=== PATIENT | female | born 1950 | race Two or more races ===

== ENCOUNTER 2019-02-17 10:48 | Emergency (ER) | payer OTHER ==
[~2019-02-17] VITALS: Ht 165.1 cm; Wt 98.9 kg
[~2019-02-17 10:48] MED LIST: CELEBREX200MG; CLEOCIN HCL300 MG
== END 2019-02-17 16:30 | disposition home or self-care (01) ==
LOC: ER 10:48
DX: B34.9 Viral infection, unspecified (principal); N20.0 Calculus of kidney; K57.30 Diverticulosis of large intestine without perforation or abscess without bleeding; R10.11 Right upper quadrant pain

== ENCOUNTER 2021-08-28 09:30 | Emergency (ER) | payer OTHER ==
[~2021-08-28] VITALS: Ht 167.6 cm; Wt 90.7 kg
== END 2021-08-28 16:24 | disposition home or self-care (01) ==
LOC: ER 09:30
DX: K57.90 Diverticulosis of intestine, part unspecified, without perforation or abscess without bleeding (principal); R10.32 Left lower quadrant pain; N20.0 Calculus of kidney; K76.0 Fatty (change of) liver, not elsewhere classified

== ENCOUNTER 2022-05-03 07:42 | Emergency (ER) | payer OTHER ==
[~2022-05-03] VITALS: Ht 167.6 cm; Wt 103.9 kg
== END 2022-05-03 14:52 | disposition home or self-care (01) ==
LOC: ER 07:42
DX: R51.9 Headache, unspecified (principal); I10 Essential (primary) hypertension; E11.9 Type 2 diabetes mellitus without complications

== ENCOUNTER 2023-12-02 23:56 | Inpatient (IN) | payer OTHER ==
[~2023-12-02] VITALS: Ht 152.4 cm; Wt 87.5 kg
[2023-12-03] VITALS (7 sets, daily range): BP systolic 131–158; BP diastolic 82–100; O2SAT 90–100
[2023-12-03] MEDS ORDERED: ELIQUIS5 MG PO (00:21)
[2023-12-03] MEDS ORDERED: GLUMETZA1000 MG PO (00:21)
[2023-12-03] MEDS ORDERED: CARVEDILOL ER40 MG PO (00:22)
--- NOTE | 2023-12-03 00:22 | NUR ---
SE RECIBE FEMINA ALERTA Y ORIENTADA X3 EN AMBULANCIA QUIEN REFIERE DEBILIDAD Y TOS PERSISTENTE DESDE HACE 2 SEMANAS APROXIMADAMENTE. PACIENTE REFIERE ESTAR EN SEGUIMIENTO CON CARDIOLOGO POR FIBRILACION DE YARI. PERSONAL DE AMBULANCIA REFIERE LE ADMINISTRARON A PACIENTE 10MG DE LABETALOL IV A LAS 11:30PM. SE MIDEN S/V Y SE REALIZA EKG EL CUAL ES EVALUADO POR DR STOUT QUIEN INDICA UBICAR A PACIENTE EN UNIDAD DE CHEST PAIN CONECTADA A MONITOR CARDIACO Y OXIMETRIA DE PULSO CONTINUA.
[2023-12-03] MEDS ORDERED: 0.9 % SODIUM CHLORIDE 1,000 ML IV SCH (00:30)
[2023-12-03] MEDS ORDERED: DILTIAZEM HCL 25 MG/5 ML VIAL IV ONE ×2 (00:30→01:58)
--- NOTE | 2023-12-03 00:35 | NUR ---
SE EDUCA A PTE SOBRE TX MEDICO, SE CHANELLE MEUSTRAS DE LABORATORIO UTILIZANDO MEDIDAS ASEPTICAS. SE COLOCA H/L ARISTIDES DE EDEMA. PTE CON H/L COLOCADO EN BRAZO LT POR PERSONAL PARAMEDICO, SE VERIFICA EL MISMO EL CUAL SE ENCUENTRA PATENTE Y ARISTIDES DE EDEMA. SE ADMINISTRAN MEDICAMENTOS A PTE CARLOS ORDEN MEDICA, PTE TOLERA LOS MISMOS. SE NOTIFICA RX PENDIENTE A REALIZAR, PTE SE ORIENTA SOBRE MUESTRA DE UA PENDIENTE A CYR[place]. PTE CONECTADA MONITOR CARDIACO CON OXIMETRIA CONTINUA, SE CHANELLE S/V A PTE LUEGO DE ADMINISTRACION DE CARDIZEM 20MG IV. PTE SE CONTINUA MONITORIANDO POR CAMBIOS.
[2023-12-03 00:58] LABS: HEMATOCRIT 38.2 % (36.0-45.00); HEMOGLOBIN 12.8 g/dL (12.0-15.00); MEAN CORPUSCULAR HEMOGLOBIN 28.2 pg (27.00-32.0); MEAN CORPUSCULAR HGB CONC 33.6 g/dl (32.0-36.0); PLATELET COUNT 256 K/uL (150-450); RED BLOOD COUNT 4.55 M/uL (4.00-6.00); RED CELL DISTRIBUTION WIDTH 15.2 % (11.5-14.5)
[2023-12-03] MEDS ORDERED: GUAIFENESIN/DEXTROMETHORPHAN 10ML BLIST.PACK PO ONE ×3 (01:00→07:14)
[2023-12-03 01:27] LABS: INR 1.16; PARTIAL THROMBOPLASTIN TIME 28.2 SECONDS (22.0-34.0); PROTHROMBIN TIME 12.5 SECONDS (9.0-11.5)
[2023-12-03 01:31] LABS: ALBUMIN 3.4 gm/dL (3.4-5.0); BILIRUBIN TOTAL 0.88 mg/dL (0.3-1.2); CALCIUM 9.3 mg/dL (8.5-10.1); CREATININE SERUM 1.05 mg/dL (0.55-1.02); GFR 51.52; GLOBULINA 3.7 G/DL (2.4-3.5); POTASSIUM 4.46 mEq/L (3.5-5.1); TOTAL PROTEIN 7.1 gm/dL (6.4-8.2)
[2023-12-03] MEDS ORDERED: DILTIAZEM HCL 125 MG in 0.9 % SODIUM CHLORIDE 125 ML IV SCH (02:00)
[2023-12-03] MEDS ORDERED: FUROsemide 40 MG/4 ML VIAL IV ONE (02:00)
[2023-12-03] MEDS ORDERED: FUROsemide 40 MG/4 ML VIAL ONE (02:01)
--- NOTE | 2023-12-03 02:02 | NUR ---
SE EJECUTAN NUEVAS ORDENES MEDICAS. SE COLOCA [place] UTILIZANDO MEDIDAS ASEPTICAS Y ESTERILES. SE ADMINISTRAN MEDICAMENTOS CARLOS ORDEN MEDICA, SE ADMINISTRA LASIX 40MG IV Y SE COMIENZA DRIP DE CARDIZEM 125MG/125ML DE 0.9NSS BAJANDO A 5ML/HR.
[2023-12-03 02:40] LABS: PH,URINE 6.5 (5.0-8.0); URINE APPEARANCE Clear; URINE BILIRRUBIN Negative (NEGATIVE); URINE BLOOD Negative; URINE COLOR Yellow; URINE KETONE Negative (NEGATIVE); URINE LEUKOCYTE Trace; URINE NITRATE Negative; URINE PROTEIN Trace (NEGATIVE)
[2023-12-03 02:41] LABS: URINE BACTERIA 311.1 uL (0.0-1933); URINE EPITHELIAL CELLS 11.8 uL (0.0-38.8); URINE RBC 2.1 uL (0.0-20.8); URINE WBC 42.3 uL (0.0-23.2)
[2023-12-03 02:51] LABS: URINE GLUCOSE 100 MG/DL (NEGATIVE)
--- NOTE | 2023-12-03 05:31 | NUR ---
SE REALIZA CAMBIO DE CATETER DE SONDA URINARIA A TAMANO F#20, BAJO MEDIDAS ESTERILES, PTE TOLERA PROCEDIMIENTO. SE LACY CAMBIO DE ROPA Y SE OFRECE COMODIDAD. SE JUAN CARLOS PTE EN CAMA NIVEL MAS BAJO CON BARANDAS ELEVADAS Y FRENOS COLOCADOS POR SEGURIDAD.
--- NOTE | 2023-12-03 05:43 | NUR ---
SE RECIBE PTE ALERTA Y ORIENTADA X3 EN CAMA #3 DE CRITICO CONECTADA A MONITOR CARDIACO Y OXIMETRIA DE PULSO CONTINUA PRESENTANDO SIGNOS VITALES YA REPORTADOS EN SISTEMA. SE OSERVAN CANALIZACIONES EN BRAZO BRIDGETT CON ANGIOS #18 Y #20 PATENTES, LIBRES DE EDEMA Y ERITEMA, POR DONDE SE ADMINISTRA 0.9%NSS 1,000ML A 100ML/HR Y CARDIZEM 125MG/125ML A 5 ML/HR. ABDOMEN DEPRESIBLE Y ARISTIDES DE DOLOR, DEL REAL CATHETER A GRAVEDAD CON EGRESO DE ORINA AMARILLO SHAYY. EXTREMIDADES INFERIORES SIN HALLAZGO RELEVANTE. SE MANTIENE PTE BAJO OBSERVACION POR CAMBIOS SIGNIFICATIVOS.
--- NOTE | 2023-12-03 07:04 | NUR ---
SE RECIBE PACIENTE FEMENINA DE 73 ANOS DE EDAD ALERTA Y ORIENTADA X3 EN ICU 2 CONECTADA A MONITOR CARDIACO Y OXIMETRIA DE PULSO. PACIENTE CON 85P 129/82BP MAP 91, 15 RR SPO02 97%. SE OBSERVAN VENOPUNCIONES EN LADO BRIDGETT #18 Y #20 PATENTES Y LIBRES DE INFECCION. RECIBIENDO CARDIZEM 125MG/100ML A 5ML/HR, Y 0.9NSS 1000ML BAJANDO A 100ML/HR. PACIENTE ASISTIDA CON DEL REAL FIJADO Y BAJANDO A GRAVEDAD. PACIENTE PENDIENTE A GASES ARTERIALES, SE NOTIFICA A TERAPISTA RESPIRATORIO.
--- NOTE | 2023-12-03 07:09 | NUR ---
SE NOTIFICAN GASES ARTERIALES A TERAPISTA DAWSON A LAS 7:10AM
[2023-12-03 07:29] LABS: ABG PH 7.489 (7.35-7.45); ABG PO2 71.9 mmHg (80-100); SaO2 95.7 %
--- NOTE | 2023-12-03 07:35 | NUR ---
SE COLOCA CANULA A 2LT/MIN JOSE PREVENCION Y TX.
[2023-12-03 07:36] LABS: allen test SATISFACTORY; o2 21 %; puncture site RADIAL LEFT
[2023-12-03] MEDS ORDERED: INSULIN LISPRO 1,000 UNIT/10 ML UNITS SUBCUTANEO PRN (09:00)
[2023-12-03] MEDS ORDERED: FUROsemide 20 MG/2 ML VIAL IV SCH (09:00)
[2023-12-03] MEDS ORDERED: CARVEDILOL 6.25 MG TABLET PO SCH (09:00)
[2023-12-03] MEDS ORDERED: ATORVASTATIN CALCIUM 10 MG TABLET PO SCH (09:00)
[2023-12-03] MEDS ORDERED: DEXTROSE 50 % IN WATER 0.5 G/ML DISP.SYRIN IV PRN (09:00)
[2023-12-03] MEDS ORDERED: FAMOtidine 20 MG TABLET PO SCH (09:00)
[2023-12-03] MEDS ORDERED: APIXABAN 5 MG TABLET PO SCH (09:00)
[2023-12-04] VITALS (8 sets, daily range): BP systolic 118–150; BP diastolic 79–80; O2SAT 95–100
[2023-12-04] MEDS ORDERED: DILTIAZEM HCL 125MG/25ML VIAL IV ONE (04:49)
[2023-12-04 09:14] LABS: HEMATOCRIT 36.6 % (36.0-45.00); HEMOGLOBIN 12.5 g/dL (12.0-15.00); MEAN CELL VOLUME 84.6 fL (80.00-100.00); MEAN CORPUSCULAR HEMOGLOBIN 28.9 pg (27.00-32.0); MEAN CORPUSCULAR HGB CONC 34.2 g/dl (32.0-36.0); PLATELET COUNT 239 K/uL (150-450); RED BLOOD COUNT 4.32 M/uL (4.00-6.00); RED CELL DISTRIBUTION WIDTH 15.2 % (11.5-14.5)
[2023-12-04 10:26] LABS: ALBUMIN 3.2 gm/dL (3.4-5.0); BILIRUBIN TOTAL 0.87 mg/dL (0.3-1.2); CALCIUM 8.9 mg/dL (8.5-10.1); CREATININE SERUM 0.75 mg/dL (0.55-1.02); GFR 75.96; GLOBULINA 3.6 G/DL (2.4-3.5); POTASSIUM 4.61 mEq/L (3.5-5.1); TOTAL PROTEIN 6.8 gm/dL (6.4-8.2); TSH 3.22 uIU/mL (0.358-3.74)
[2023-12-04] MEDS ORDERED: INSULIN GLARGINE,HUM.REC.ANLOG 1,000 UNITS/10 ML UNITS SUBCUTANEO SCH (21:00)
[2023-12-05] VITALS (9 sets, daily range): BP systolic 154–190; BP diastolic 80–108; O2SAT 94–100
[2023-12-05] MEDS ORDERED: CARVEDILOL 12.5 MG TABLET PO SCH (09:00)
[2023-12-05] MEDS ORDERED: LOSARTAN POTASSIUM 25 MG TABLET PO SCH (17:00)
[2023-12-06] VITALS (9 sets, daily range): BP systolic 133–150; BP diastolic 83–87; O2SAT 94–100
[2023-12-06] MEDS ORDERED: INSULIN LISPRO 1,000 UNIT/10 ML UNITS SUBCUTANEO SCH ×2 (08:00→17:00)
[2023-12-06] MEDS ORDERED: ONDANSETRON HCL 2 MG/ML VIAL IV PRN (08:15)
[2023-12-06] MEDS ORDERED: FUROsemide 20 MG TABLET PO SCH (09:00)
[2023-12-06] MEDS ORDERED: CARVEDILOL 25 MG TABLET PO SCH (09:00)
[2023-12-06 11:09] LABS: BILIRUBIN TOTAL 0.81 mg/dL (0.3-1.2); CALCIUM 9.2 mg/dL (8.5-10.1); CREATININE SERUM 0.87 mg/dL (0.55-1.02); GLOBULINA 3.8 G/DL (2.4-3.5); POTASSIUM 4.26 mEq/L (3.5-5.1); TOTAL PROTEIN 6.8 gm/dL (6.4-8.2)
[2023-12-06] MEDS ORDERED: INSULIN GLARGINE,HUM.REC.ANLOG 1,000 UNITS/10 ML UNITS SUBCUTANEO SCH (21:00)
[2023-12-07] VITALS (9 sets, daily range): BP systolic 103–141; BP diastolic 70–82; O2SAT 95–99
[2023-12-08 01:00] VITALS: O2SAT 98
[2023-12-08 02:25] VITALS: BP 115/77; O2SAT 95
[2023-12-08 05:00] VITALS: O2SAT 95
[2023-12-08 08:57] VITALS: BP 126/84; O2SAT 100
[2023-12-08 13:39] VITALS: O2SAT 97
[2023-12-08 17:42] VITALS: BP 110/70; O2SAT 97
== END 2023-12-08 20:30 | disposition home or self-care (01) | DRG 310 ==
LOC: ER 23:56 → MEDJ 12-03 09:17 → MEDI 12-04 14:30
PROVIDERS: General Practice; Internal Medicine; ADMIT Internal Medicine; ATTEND Internal Medicine
PROC: 4A12X4Z Monitoring of Cardiac Electrical Activity, External Approach (ICD-10-PCS; principal; 2023-12-03)
PROC: B246ZZZ Ultrasonography of Right and Left Heart (ICD-10-PCS; 2023-12-03)
DX: I48.20 Chronic atrial fibrillation, unspecified (principal); I11.0 Hypertensive heart disease with heart failure; I50.9 Heart failure, unspecified; E11.65 Type 2 diabetes mellitus with hyperglycemia; Z79.84 Long term (current) use of oral hypoglycemic drugs

== ENCOUNTER 2024-12-02 20:10 | Emergency (ER) | payer OTHER ==
[~2024-12-02] VITALS: Ht 167.6 cm; Wt 88.9 kg
[~2024-12-02 20:10] MED LIST changes: +CARVEDILOL ER40 MG PO; +ELIQUIS5 MG PO; +GLUMETZA1000 MG PO
[2024-12-02 21:34] LABS: BASO % 0.5 % (0.1-1.2); EOS # 0.06 (0.04-0.54); EOS % 0.6 % (0.7-7.0); LYMPH # 0.90 (1.18-3.74); LYMPH % 9.1 % (19.3-53.1); MEAN PLATELET VOLUME 11.90 fl (9.4-12.4); MONO # 0.70 (0.24-0.82); MONO % 7.0 % (4.7-12.5); NEUT # 8.17 (1.56-6.13); NEUT % 82.2 % (34.0-71.1); RED CELL DISTRIBUTION WIDTH 12.8 % (11.6-14.4)
[2024-12-02 21:55] LABS: INR 1.1
[2024-12-02 22:00] LABS: ALT/SGPT 24.0 U/L (12-78); AST/SGOT 22.0 U/L (15-37); BILIRUBIN TOTAL 0.73 mg/dL (0.3-1.2); BUN CREA RATIO 23.0 (7.0-25.0); CREATININE SERUM 1.16 mg/dL (0.55-1.02); GFR 45.79; GLOBULINA 3.4 G/DL (2.4-3.5); OSMOLALITY SERUM 296.0 MOSM/KG (275-295); PHOSPHOKINASE CREATININE 317.0 U/L (26-192)
[2024-12-02 22:04] LABS: GLUCOSE FASTING 376.0 mg/dL (65-100)
[2024-12-02] MEDS ORDERED: INSULIN REGULAR, HUMAN 1,000 UNIT/10 ML UNITS SUBCUTANEO ONE (23:30)
[2024-12-03 00:04] LABS: URINE APPEARANCE Clear; URINE BILIRRUBIN Negative (NEGATIVE); URINE BLOOD Negative; URINE COLOR Yellow; URINE KETONE Trace (NEGATIVE); URINE LEUKOCYTE Negative; URINE NITRATE Negative; URINE PROTEIN Negative (NEGATIVE); URINE UROBILINOGEN 1.0 E.U./dl
[2024-12-03 00:08] LABS: URINE BACTERIA 1884.0 uL (0.0-1933); URINE EPITHELIAL CELLS 13.2 uL (0.0-38.8); URINE WBC 22.9 uL (0.0-23.2)
[2024-12-03 00:33] LABS: URINE CAST 0.43 uL (0.0-1.40); URINE GLUCOSE >=1000 MG/DL (NEGATIVE); URINE RBC 1.4 uL (0.0-20.8)
== END 2024-12-03 00:03 | disposition home or self-care (01) ==
LOC: ER 20:10
PROVIDERS: General Practice
DX: R55 Syncope and collapse (principal); I49.8 Other specified cardiac arrhythmias; I25.2 Old myocardial infarction; E03.8 Other specified hypothyroidism; I10 Essential (primary) hypertension; I25.10 Atherosclerotic heart disease of native coronary artery without angina pectoris; E11.65 Type 2 diabetes mellitus with hyperglycemia; Z79.84 Long term (current) use of oral hypoglycemic drugs